=== PATIENT | male | born 1960 | race Caucasian/White ===

== ENCOUNTER 2016-12-29 12:43 | Emergency (ER) | payer BC ==
[~2016-12-29] VITALS: Wt 88.3 kg
[2016-12-29] MEDS ORDERED: SOD CHLORIDE 0.9% 1,000 ML IV STA (13:24)
[2016-12-29] MEDS ORDERED: SOD CHLORIDE 0.9% 1,000 ML IV ONE (13:30)
[2016-12-29 13:39] LABS: ADD SCAN DIFF NO
[2016-12-29 13:46] LABS: BASOPHILS % 0.2 % (0.0-2.0); EOSINOPHILS # 0.2 10^3/ul (0.0-0.5); EOSINOPHILS % 1.6 % (0.0-7.0); HEMATOCRIT 48.1 % (42.0-52.0); HEMOGLOBIN 16.3 g/dl (14.0-18.0); LYMPHOCYTES # 1.7 10^3/ul (0.8-2.9); LYMPHOCYTES % 16.1 % (15.0-51.0); MEAN CORPUSCULAR HEMOGLOBIN 31.6 pg (29.0-33.0); MEAN CORPUSCULAR HGB CONC 33.9 g/dl (32.0-37.0); MEAN CORPUSCULAR VOLUME 93.2 fl (82.0-101.0); MONOCYTE # 0.6 10^3/ul (0.3-0.9); MONOCYTES % 6.2 % (0.0-11.0); NEUTROPHIL # 7.8 10^3/ul (1.6-7.5); NEUTROPHILS % 75.5 % (39.0-77.0); PLATELET COUNT 172 10^3/UL (140-415); RED BLOOD COUNT 5.16 10^6/ul (4.70-6.10); RED CELL DISTRIBUTION WIDTH 13.1 % (11.5-14.5); WHITE BLOOD COUNT 10.4 10^3/ul (4.8-10.8)
[2016-12-29 13:56] LABS: ALBUMIN 4.4 g/dl (3.3-4.9)
[2016-12-29 13:58] LABS: CREATININE 0.85 mg/dl (0.61-1.24)
[2016-12-29 13:59] LABS: ALBUMIN/GLOBULIN RATIO 1.04; CALCIUM 9.4 mg/dl (8.4-10.2); TOTAL PROTEIN 8.6 g/dl (6.1-8.1)
[2016-12-29 14:25] LABS: ADD UMIC YES; URINE BILIRUBIN (Dip) 2+ (NEGATIVE); URINE BLOOD (Dip) TRACE (NEGATIVE); URINE COLOR AMBER (YELLOW); URINE GLUCOSE (Dip) NEGATIVE (NEGATIVE); URINE KETONES (Dip) 15 (NEGATIVE); URINE LEUKOCYTE ESTERASE (Dip) NEGATIVE (NEGATIVE); URINE NITRITE (Dip) NEGATIVE (NEGATIVE); URINE TOTAL PROTEIN (Dip) 1+ (NEGATIVE); URINE UROBILINOGEN (Dip) 0.2 E.U./dL (0.1-1.0)
[2016-12-29 14:38] LABS: ICTOTEST NEGATIVE (NEGATIVE); MUCUS,URINE MODERATE; URINE RBCS 0-2 /HPF (0)
[2016-12-29 14:39] LABS: BACTERIA,URINE FEW
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
[2016-12-29 16:05] VITALS: BP 130/72; PULSE 83; RESP 20; TEMP 98.3
== END 2016-12-29 16:10 | disposition left against medical advice (07) ==
LOC: E/R 12:43
DX: K85.90 Acute pancreatitis without necrosis or infection, unspecified (principal); R11.10 Vomiting, unspecified; R19.7 Diarrhea, unspecified; R94.5 Abnormal results of liver function studies
CPT/HCPCS: 36415; 80053; 81001; 83690; 85025; 99284; J7030; 81003